=== PATIENT | female | born 1975 | race American Indian/Alaskan Native ===

== ENCOUNTER 2021-08-16 11:47 | Emergency (ER) | payer BC ==
[2021-08-16 13:19] VITALS: BP 112/67
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
[2021-08-16 14:59] LABS: Basophils % (Auto) 0.4 % (0.0-1.8); Eosinophils # (Auto) 0.1 K/mm3 (0.0-0.4); Eosinophils % (Auto) 1.1 % (0.0-4.3); Hematocrit 32.3 % (30.3-42.9); Hemoglobin 10.3 gm/dl (10.1-14.3); Lymphocytes # (Auto) 2.4 K/mm3 (1.2-5.4); Mean Corpuscular HGB Conc 32 % (30-34); Monocytes # (Auto) 0.6 K/mm3 (0.0-0.8); Monocytes % (Auto) 6.5 % (0.0-7.3); Platelet Count 348 K/mm3 (140-440); Red Blood Count 4.85 M/mm3 (3.65-5.03)
[2021-08-16 15:16] LABS: Albumin 4.3 g/dL (3.9-5); Blood Urea Nitrogen 13 mg/dL (7-17); Calcium 9.1 mg/dL (8.4-10.2); Hemolysis Index 1
[2021-08-16 15:26] LABS: Alanine Aminotransferase < 5 units/L (7-56); BUN/Creatinine Ratio 22
[2021-08-16 15:28] LABS: Mean Corpuscular Volume 67 fl (79-97); Red Cell Distribution Width 21.6 % (13.2-15.2)
[2021-08-16 15:31] LABS: Bacteria,Urine 1+ /HPF (Negative); Bilirubin,Urine NEG (Negative); Blood,Urine SM (Negative); Color,Urine Yellow (Yellow); Mucus,Urine 1+ /HPF; Urobilinogen,Urine < 2.0 mg/dL (<2.0)
== END 2021-08-16 16:01 | disposition home or self-care (01) ==
LOC: ED 11:47
DX: R10.2 Pelvic and perineal pain (principal)
CPT/HCPCS: 36415; 80053; 81001; 83690; 84703; 85025; 99283